=== PATIENT | male | born 1945 | race Caucasian/White ===

== ENCOUNTER 2017-04-10 12:35 | Emergency (ER) | payer OTHER, MEDICARE ==
[~2017-04-10] VITALS: Ht 167.6 cm; Wt 92.2 kg
[~2017-04-10 12:35] MED LIST: BENTYL20 MG PO; ECOTRIN325 MG PO; LIPITOR80 MG PO; OMEPRAZOLE20 MG PO; RAMIPRIL2.5 MG PO
[2017-04-10 15:02] VITALS: BP 147/73
== END 2017-04-10 15:02 | disposition home or self-care (01) ==
LOC: EME 12:35
DX: Z46.6 Encounter for fitting and adjustment of urinary device (principal); Z85.46 Personal history of malignant neoplasm of prostate; Z98.890 Other specified postprocedural states; I25.10 Atherosclerotic heart disease of native coronary artery without angina pectoris; E78.5 Hyperlipidemia, unspecified; I10 Essential (primary) hypertension; Z95.1 Presence of aortocoronary bypass graft; Z95.5 Presence of coronary angioplasty implant and graft; Z87.891 Personal history of nicotine dependence
CPT/HCPCS: 99281; 99284

== ENCOUNTER 2017-08-25 07:01 | Inpatient (IN) | payer OTHER, MEDICARE ==
[~2017-08-25] VITALS: Ht 172.7 cm; Wt 82.7 kg
[2017-08-25 09:28] LABS: HEMATOCRIT 49.4 % (38.0-50.0); HEMOGLOBIN 16.6 G/DL (12.5-16.6); MCH 30.1 PG (29.0-34.0); MCHC 33.6 G/DL (30.0-36.0); MCV 89.7 FL (86-99); PLATELET COUNT 277 K/uL (156-360); RBC DIS.WIDTH-CV 12.4 % (11.8-14.6); RBC DIS.WIDTH-SD 40.6 % (39-53); RED BLOOD COUNT 5.51 M/uL (4.00-5.50)
[2017-08-25 10:01] LABS: ALBUMIN 3.9 G/DL (3.2-4.8); CHLORIDE 101 MEQ/L (99-109); POTASSIUM 5.6 MEQ/L (3.7-5.4); SODIUM 136 MEQ/L (136-147); TOTAL BILIRUBIN 0.6 MG/DL (0.0-1.0)
[2017-08-25 10:07] LABS: ALKALINE PHOSPHATASE 77 IU/L (3-129); ALT (GPT) 28 IU/L (3-49); AST (GOT) 32 IU/L (2-34); CREATININE 0.9 MG/DL (0.6-1.3); GFR ESTIMATE (CALCULATED) > 59 mL/min/ (58.99-99999); GLUCOSE 159 mg/dL (70-99); TOTAL PROTEIN 6.7 G/DL (6.4-8.3); UREA NITROGEN (BUN) 16 mg/dL (9-23)
[2017-08-25] MEDS ORDERED: GLUCOPHAGE1000 MG PO (12:42)
[2017-08-25] MEDS ORDERED: TESSALON200 MG PO (12:43)
[2017-08-25] MEDS ORDERED: KEFLEX500 MG PO (12:43)
[2017-08-25 19:10] VITALS: BP 169/79
[2017-08-25 19:14] VITALS: BP 169/79
[2017-08-25 23:30] VITALS: BP 136/65
[2017-08-26 03:55] VITALS: BP 131/65
[2017-08-26 05:29] LABS: HEMATOCRIT 44.8 % (38.0-50.0); HEMOGLOBIN 14.7 G/DL (12.5-16.6); MCH 29.7 PG (29.0-34.0); MCHC 32.8 G/DL (30.0-36.0); MCV 90.5 FL (86-99); PLATELET COUNT 288 K/uL (156-360); RBC DIS.WIDTH-CV 12.5 % (11.8-14.6); RBC DIS.WIDTH-SD 40.8 % (39-53); RED BLOOD COUNT 4.95 M/uL (4.00-5.50); WHITE BLOOD COUNT 11.2 K/uL (4.1-10.2)
[2017-08-26 06:05] LABS: CHLORIDE 103 MEQ/L (99-109); GFR ESTIMATE (CALCULATED) > 59 mL/min/ (58.99-99999); GLUCOSE 141 mg/dL (70-99); POTASSIUM 4.1 MEQ/L (3.7-5.4); SODIUM 138 MEQ/L (136-147); UREA NITROGEN (BUN) 16 mg/dL (9-23)
[2017-08-26 09:16] VITALS: BP 166/75
[2017-08-26 12:19] VITALS: BP 168/78
[2017-08-26 15:57] VITALS: BP 168/85
[2017-08-26 19:48] VITALS: BP 177/80
[2017-08-27 03:21] VITALS: BP 166/73
[2017-08-27 08:46] VITALS: BP 152/71
[2017-08-27 12:26] VITALS: BP 149/79
[2017-08-27 16:50] VITALS: BP 143/76
[2017-08-27 19:48] VITALS: BP 148/70
[2017-08-27 23:29] VITALS: BP 159/77
[2017-08-28 03:30] VITALS: BP 160/85
[2017-08-28 07:34] VITALS: BP 136/72
[2017-08-28 12:32] VITALS: BP 152/86
[2017-08-28 16:24] VITALS: BP 148/74
[2017-08-28 19:47] VITALS: BP 145/81
[2017-08-28 23:58] VITALS: BP 157/89
[2017-08-29 04:50] VITALS: BP 168/89
[2017-08-29 07:42] VITALS: BP 124/76
[2017-08-29 11:04] VITALS: BP 128/74
[2017-08-29 17:07] VITALS: BP 135/79
[2017-08-29 23:21] VITALS: BP 147/77
[2017-08-30 07:15] VITALS: BP 122/70
[2017-08-30 10:43] VITALS: BP 118/68
[2017-08-30 16:06] VITALS: BP 133/64
[2017-08-30 20:13] VITALS: BP 135/65
[2017-08-31 00:27] VITALS: BP 119/67
[2017-08-31 03:18] VITALS: BP 116/59
[2017-08-31 07:05] LABS: BASOPHIL (%) 0.1 % (0-1); EOSINOPHIL (%) 0 % (0-5); HEMATOCRIT 44.6 % (38.0-50.0); HEMOGLOBIN 14.8 G/DL (12.5-16.6); IMMATURE GRANULOCYTE (%) 0.7 % (0.0-0.7); LYMPHOCYTE (%) 10.9 % (15-42); LYMPHOCYTE COUNT 1.5 K/uL (1.0-2.8); MCH 29.5 PG (29.0-34.0); MCHC 33.2 G/DL (30.0-36.0); MONOCYTE (%) 7.2 % (3-12); NEUTROPHIL (%) 81.1 % (45-76); NEUTROPHIL COUNT 11.2 K/uL (1.8-6.4); PLATELET COUNT 355 K/uL (156-360); RBC DIS.WIDTH-CV 12.1 % (11.8-14.6); RBC DIS.WIDTH-SD 39.5 % (39-53); RED BLOOD COUNT 5.01 M/uL (4.00-5.50); WHITE BLOOD COUNT 13.8 K/uL (4.1-10.2)
[2017-08-31 07:39] LABS: CHLORIDE 98 MEQ/L (99-109); CREATININE 0.9 MG/DL (0.6-1.3); GFR ESTIMATE (CALCULATED) > 59 mL/min/ (58.99-99999); GLUCOSE 147 mg/dL (70-99); POTASSIUM 4.7 MEQ/L (3.7-5.4); SODIUM 136 MEQ/L (136-147)
[2017-08-31 07:45] LABS: UREA NITROGEN (BUN) 29 mg/dL (9-23)
[2017-08-31 07:52] VITALS: BP 125/67
[2017-08-31 11:28] VITALS: BP 136/65
[2017-08-31] MEDS ORDERED: MUCINEX600 MG PO (11:37)
[2017-08-31] MEDS ORDERED: PREDNISONE5 MG PO (11:39)
[2017-08-31] MEDS ORDERED: VENTOLIN HFA18 GM IH (11:40)
== END 2017-08-31 13:53 | disposition home or self-care (01) | DRG 205 ==
LOC: EME 07:01 → 3EAST 16:27 → EDOF 16:27 → ENRESERV 16:28 → 3EAST 18:58
PROVIDERS: Internal Medicine; Nurse Practitioner Family
DX: S22.31XA Fracture of one rib, right side, initial encounter for closed fracture (principal); J96.01 Acute respiratory failure with hypoxia; I25.10 Atherosclerotic heart disease of native coronary artery without angina pectoris; M25.511 Pain in right shoulder; M54.9 Dorsalgia, unspecified; E87.5 Hyperkalemia; M95.4 Acquired deformity of chest and rib; W00.0XXA Fall on same level due to ice and snow, initial encounter; E78.5 Hyperlipidemia, unspecified; K21.9 Gastro-esophageal reflux disease without esophagitis; J40 Bronchitis, not specified as acute or chronic; I10 Essential (primary) hypertension; E11.9 Type 2 diabetes mellitus without complications; Z95.1 Presence of aortocoronary bypass graft; Z87.891 Personal history of nicotine dependence; Y93.29 Activity, other involving ice and snow; Z85.46 Personal history of malignant neoplasm of prostate; Z82.49 Family history of ischemic heart disease and other diseases of the circulatory system; Y92.9 Unspecified place or not applicable; Z83.3 Family history of diabetes mellitus; Z95.5 Presence of coronary angioplasty implant and graft
CPT/HCPCS: 71046; 71260; 74177; 80048; 80053; 81003; 82948; 83735; 83880; 84132 91; 84145 90; 85025; 85027; 93005; 94010; 94640 76; 94667; 94799; 99202; 99281; 99284; J1650; J1815; J1940; J2270; J7030; J7512